=== PATIENT | male | born 1945 | race Caucasian/White ===

== ENCOUNTER 2022-05-07 21:02 | Emergency (ER) | payer OTHER ==
[2022-05-07 21:11] VITALS: BP 137/86; PULSE 102; RESP 18; TEMP 97.8; BMI 25.0
[2022-05-07] MEDS ORDERED: METHOCARBAMOL 500 MG TABLET PO ONE (21:52)
[2022-05-07] MEDS ORDERED: KETOROLAC TROMETHAMINE 30 MG/1 ML VIAL IM ONE (21:52)
[2022-05-07] MEDS ORDERED: LIDOCAINE 5% TOPICAL PATCH TP ONE (21:52)
[2022-05-07] MEDS ORDERED: LIDOCAINE PATCH REMOVAL MC SCH (22:00)
== END 2022-05-07 23:35 | disposition home or self-care (01) ==
LOC: JER 21:02
PROC: 3E023GC Introduction of Other Therapeutic Substance into Muscle, Percutaneous Approach (ICD-10-PCS; principal; 2022-05-07)
DX: M62.838 Other muscle spasm (principal)
CPT/HCPCS: 99284-25